=== PATIENT | male | born 1990 | race Caucasian/White ===

== ENCOUNTER 2021-07-21 22:50 | Emergency (ER) | payer SELFPAY ==
[~2021-07-21] VITALS: Ht 170.2 cm; Wt 120.5 kg
[2021-07-21] MEDS ORDERED: FAMOTIDINE 20 MG/2 ML VIAL IVP ONE (23:15)
[2021-07-21] MEDS ORDERED: ONDANSETRON PF 4 MG/2 ML VIAL. IVP ONE (23:15)
[2021-07-21] MEDS ORDERED: KETOROLAC 15 MG/ML VIAL. IVP ONE (23:15)
[2021-07-21] MEDS ORDERED: IV NORMAL SALINE 1,000ML 1,000 ML IV ONE (23:15)
[2021-07-21] MEDS ORDERED: IOHEXOL 300 MG/ML 75 ML VIAL. IV ONE (23:30)
[2021-07-21] MEDS ORDERED: CONTRAST GIVEN. MC PRN (23:30)
--- NOTE | 2021-07-21 23:50 | PHYS DOC ---
Past History Past Medical History: Diverticulitis, Hypothyroid Past Surgical History: Other Additional Past Surgical Histo: BREAST REDUCTION, HERNIA REPAIR, TOE, EYELID SX, NOSE SX Smoking: Cigarettes Alcohol Use: None Drug Use: None General Adult EDM: Chief Complaint: ABDOMINAL PAIN HPI: HPI: 30-year-old male presents with report of left lower quadrant abdominal pain that started approximately 3 days ago. Patient reports history of diverticulitis with admission approximately 3 months ago at [facility]. Patient at that time was told there was a "mass "noted on CT that seemed to improve after IV antibiotic therapy. Patient reports pain similar to prior episode. Denies any fever or chills. Denies trauma. Denies known sick contacts. Patient does report associated nausea and a episode of "bloody" stooling. Review of Systems: Review of Systems: Constitutional: Denies fever or chills Eyes: Denies redness or eye pain HENT: Denies nasal congestion or sore throat Respiratory: Denies cough or shortness of breath Cardiovascular: Denies chest pain or palpitations GI: Reports LLQ abdominal pain, nausea, and episode of a bloody stool : Denies dysuria or hematuria Musculoskeletal: Denies back pain or joint pain Integument: Denies rash or skin lesions Neurologic: Denies headache, focal weakness or sensory changes Complete systems were reviewed and found to be within normal limits, except as documented in this note. Current Medications: Current Meds: Current Medications Medications (Trade) Dose Ordered Sig/Jose Guadalupe Start Time Stop Time Status Last Admin Dose Admin Famotidine (Pepcid Vial) 20 mg 1X ONCE 07/21/21 23:15 07/21/21 23:19 DC 07/21/21 23:42 20 MG Info (Do NOT chart on this entry -- for MONITORING) 1 each PRN DAILY PRN 07/21/21 23:30 07/23/21 23:29 Iohexol (Omnipaque 300 Mg/ml) 75 ml 1X ONCE 07/21/21 23:30 07/21/21 23:31 DC Ketorolac Tromethamine (Toradol 15mg Vial) 15 mg 1X ONCE 07/21/21 23:15 07/21/21 23:19 DC 07/21/21 23:43 15 MG Ondansetron HCl (Zofran) 4 mg 1X ONCE 07/21/21 23:15 07/21/21 23:19 DC 07/21/21 23:42 4 MG Sodium Chloride 1,000 ml @ 1,000 mls/hr 1X ONCE 07/21/21 23:15 07/22/21 00:14 07/21/21 23:43 1,000 MLS/HR Allergies: Allergies: Allergies Coded Allergies Type Severity Reaction Last Updated Verified codeine Allergy Mild Itching 07/21/21 Yes Physical Exam: PE: Constitutional: Well developed, well nourished, no acute distress, non-toxic appearance HENT: Normocephalic, atraumatic Eyes: Conjunctiva normal, no discharge Neck: Normal range of motion, supple Lungs & Thorax: No respiratory distress, equal chest rise and fall Abdomen: Soft, LLQ tenderness, no guarding/rebound tenderness/distention Skin: Warm, dry, no erythema, no rash Back: No tenderness, no CVA tenderness Extremities: No tenderness, ROM intact, no edema Neurologic: Alert and oriented X 3, no focal deficits noted Psychologic: Affect normal, judgment normal Current Patient Data: Vital Signs: Vital Signs Date Time Temp Pulse Resp B/P (MAP) Pulse Ox O2 Delivery O2 Flow Rate FiO2 07/21/21 23:05 98.2 70 18 136/88 (104) 97 Room Air EKG: EKG: [] Radiology/Procedures: Radiology/Procedures: PROCEDURE: CT ABD PELV W/ IV CONTRST ONLY EXAM: CT ABDOMEN/PELVIS WITH CONTRAST. HISTORY: Left lower quadrant pain. TECHNIQUE: Computed tomography of the abdomen and pelvis was performed after the intravenous administration of iodinated contrast. One or more of the following individualized dose reduction techniques were utilized for this examination: 1. Automated exposure control. 2. Adjustment of the mA and/or kV according to patient size. 3. Use of iterative reconstruction technique. COMPARISON: None. FINDINGS: Lung windows through the visualized portions of the bases reveal no abnormality. Bone windows reveal no suspicious lesions. The liver, gallbladder, pancreas, adrenal glands, spleen and kidneys are unremarkable. There are no pathologically enlarged lymph nodes. Sigmoid diverticulosis is mild. There is no acute inflammation. The appendix is not inflamed. There is no small bowel obstruction. IMPRESSION: 1. No cause for pain is identified. Electronically signed by: Makenzie Rodarte MD (07/22/2021 1:48 AM) [facility] Heart Score: C/O Chest Pain: N/A Course & Med Decision Making: Course & Med Decision Making Pertinent Labs and Imaging studies reviewed. (See chart for details) Patient presents with 3-day history of left lower quadrant abdominal pain. Reports history of diverticulitis. Patient also reports previously seen "mass "that improved after IV antibiotic therapy. Patient reports concern that diverticulitis and mass may have returned. Pain/nausea addressed. IV fluid hydration given. Labs obtained and posted to chart. WBC within normal limits. CT abdomen/pelvis without acute finding. Concern for early diverticulitis given location and history. Rx for empiric antibiotics provided with instructions to "watch and wait". Patient stable for discharge with outpatient follow-up with PCP/GI. GI referral provided. Discussed findings and plan with patient, who acknowledges understanding and agreement. Christopher Disclaimer: Christopher Disclaimer: This electronic medical record was generated, in whole or in part, using a voice recognition dictation system. Departure Departure: Impression: Primary Impression: Abdominal pain Qualified Codes: R10.32 - Left lower quadrant pain Additional Impression: Hx of diverticulitis of colon Disposition: HOME / SELF CARE / HOMELESS Condition: STABLE Referrals: PCPCLAU (PCP) CORNELIO RIDDLE MD Patient Instructions: Abdominal Pain (Nonspecific), Diverticulitis, [id number] Additional Instructions: Hold antibiotics for 48 hours. If symptoms worsen or for fever > 100.3 F after 48 hours then start antibiotics as prescribed. Scripts Sennosides/Docusate Sodium (Colace 2-in-1 Tablet) 1 Each Tablet 1 TAB PO QHS for Constipation, #20 TAB 0 Refills Prov: GRAYSON MENG DO 07/22/21 Hydrocodone Bit/Acetaminophen (HYDROCODONE-APAP 5-325 ) 1 Each Tablet 0.5 TAB PO PRN Q6HRS PRN for PAIN, #10 TAB 0 Refills Prov: GRAYSON MENG DO 07/22/21 Ondansetron (ONDANSETRON ODT) 4 Mg Tab.rapdis 1 TAB PO PRN Q6-8HRS PRN for NAUSEA, #16 TAB Prov: GRAYSON MENG DO 07/22/21 Metronidazole (FLAGYL) 500 Mg Tablet 1 TAB PO TID for Diverticulitis for 7 Days, #21 TAB Prov: GRAYSON MENG DO 07/22/21 Ciprofloxacin Hcl (CIPRO) 500 Mg Tablet 1 TAB PO BID for Diverticuilitis for 7 Days, #14 TAB Prov: GRAYSON MENG DO 07/22/21 GRAYSON MENG DO Jul 21, 2021 23:50
[2021-07-22 00:20] LABS: CALCIUM 9.2 mg/dL (8.5-10.1); CREATININE 0.9 mg/dL (0.7-1.3); GFR 99.1; POTASSIUM 3.9 mmol/L (3.5-5.1)
[2021-07-22 00:24] LABS: BASO # 0.1 x10^3/uL (0.0-0.2); BASO % 1 % (0-3); EOS # 0.2 x10^3/uL (0.0-0.7); EOS % 3 % (0-3); HEMATOCRIT 47.3 % (39.0-53.0); HEMOGLOBIN 15.6 g/dL (13.0-17.5); LYMPH # 2.9 x10^3/uL (1.0-4.8); LYMPH % 30 % (24-48); MEAN CORPUSCULAR HEMOGLOBIN 29 pg (25-35); MEAN CORPUSCULAR HGB CONC 33 g/dL (31-37); MEAN CORPUSCULAR VOLUME 89 fL (79-100); MONO # 0.7 x10^3/uL (0.0-1.1); MONO % 7 % (0-9); NEUT # 5.8 x10^3uL (1.8-7.7); NEUT % 60 % (31-73); PLATELET COUNT 269 x10^3/uL (140-400); RED BLOOD COUNT 5.32 x10^6/uL (4.30-5.70); RED CELL DISTRIBUTION WIDTH 13.3 % (11.5-14.5); WHITE BLOOD COUNT 9.7 x10^3/uL (4.0-11.0)
[2021-07-22 00:34] LABS: ALBUMIN 3.9 g/dL (3.4-5.0); TOTAL BILIRUBIN 0.2 mg/dL (0.2-1.0); TOTAL PROTEIN 7.7 g/dL (6.4-8.2)
--- NOTE | 2021-07-22 01:50 | RAD ---
EXAM: CT ABDOMEN/PELVIS WITH CONTRAST. HISTORY: Left lower quadrant pain. TECHNIQUE: Computed tomography of the abdomen and pelvis was performed after the intravenous administ ration of iodinated contrast. One or more of the following individualized dose reduction techniques w ere utilized for this examination: 1. Automated exposure control. 2. Adjustment of the mA and/or kV according to patient size. 3. Use of iterative reconstruction technique. COMPARISON: None. FINDINGS: Lung windows through the visualized portions of the bases reveal no abnormality. Bone windo ws reveal no suspicious lesions. The liver, gallbladder, pancreas, adrenal glands, spleen and kidneys are unremarkable. There are no p athologically enlarged lymph nodes. Sigmoid diverticulosis is mild. There is no acute inflammation. The appendix is not inflamed. There i s no small bowel obstruction. IMPRESSION: 1. No cause for pain is identified. Electronically signed by: Makenzie Rodarte MD (07/22/2021 1:48 AM) [facility]
[2021-07-22 02:08] LABS: BACTERIA,URINE 0 /HPF (0-FEW); BILIRUBIN,URINE NEG (NEG); CLARITY,URINE CLEAR; COLOR,URINE YELLOW; GLUCOSE,URINE NEG (NEG); NITRITE,URINE NEG (NEG); RBC,URINE 0 /HPF (0-2); SQUAMOUS EPITHELIAL CELL,UR OCC /LPF; UROBILINOGEN,URINE 0.2 mg/dL (0.2 mg/dL); WBC,URINE OCC /HPF (0-4)
[2021-07-22] MEDS ORDERED: ONDA4TAB12 PO (03:13)
[2021-07-22] MEDS ORDERED: SENN-121 PO (03:13)
[2021-07-22] MEDS ORDERED: METR500T PO (03:13)
[2021-07-22] MEDS ORDERED: HYDR-2155 PO (03:13)
[2021-07-22] MEDS ORDERED: CIPR500T94 PO (03:13)
[2021-07-22] MEDS ORDERED: HYDROcodone/APAP 5/325MG 1 TAB TABLET PO ONE (03:15)
[2021-07-22 03:28] VITALS: BP 148/90
== END 2021-07-22 03:34 | disposition home or self-care (01) ==
LOC: ER 22:50
DX: R10.32 Left lower quadrant pain (principal); K92.1 Melena; E03.9 Hypothyroidism, unspecified; F17.210 Nicotine dependence, cigarettes, uncomplicated; Z88.5 Allergy status to narcotic agent
CPT/HCPCS: 36415; 74177; 80053; 81001; 83690; 85025; 96361; 96374; 96375; 99285; J1885; J2405; J3490; J7030; Q9967

== ENCOUNTER 2021-10-03 21:37 | Emergency (ER) | payer SELFPAY ==
[~2021-10-03] VITALS: Ht 170.2 cm; Wt 122.3 kg
[~2021-10-03 21:37] MED LIST: CIPR500T94 PO; HYDR-2155 PO; METR500T PO; ONDA4TAB12 PO; SENN-121 PO
--- NOTE | 2021-10-03 21:41 | PHYS DOC ---
Past History Past Medical History: Diverticulitis, Hypothyroid Past Surgical History: Other Additional Past Surgical Histo: BREAST REDUCTION, HERNIA REPAIR, TOE, EYELID SX, NOSE SX Smoking: Cigarettes Alcohol Use: None Drug Use: None Adult General HPI HPI Patient is a 31-year-old male otherwise healthy who presents with cough and body aches. States he took some Tylenol earlier this morning with some minimal relief. States his and kids were diagnosed with Covid about 3 weeks ago and he has been at home with them. Denies any recent traumas, travels, fevers, chest pain, abdominal pain, nausea, vomiting, diarrhea. States he is able to eat and drink normally for him. States he is making urine and stool normally for him. Review of Systems Review of Systems Review of systems otherwise unremarkable except noted in HPI Allergies Allergies Allergies Coded Allergies Type Severity Reaction Last Updated Verified codeine Allergy Mild Itching 07/21/21 Yes Physical Exam Physical Exam Constitutional: Well developed, well nourished, no acute distress, non-toxic appearance. [] HENT: Normocephalic, atraumatic, oropharynx moist, no oral exudates, nose normal. [] Eyes: conjunctiva normal, no discharge. [] Neck: Normal range of motion, no tenderness, supple, no stridor. [] Cardiovascular:Heart rate regular rhythm, no murmur [] Lungs & Thorax: Scant bilateral rhonchi with no respiratory distress or hypoxia Skin: Warm, dry, no erythema, no rash. [] Extremities: No tenderness, no cyanosis, no clubbing, ROM intact, no edema. [] Neurologic: Alert and oriented X 3, no focal deficits noted. [] Psychologic: Affect normal, judgement normal, mood normal. [] EKG EKG [] Radiology/Procedures Radiology/Procedures [] Heart Score C/O Chest Pain: No Risk Factors: Risk Factors: DM, Current or recent (<one month) smoker, HTN, HLP, family history of CAD, obesity. Risk Scores: Risk Factors: DM, Current or recent (<one month) smoker, HTN, HLP, family history of CAD, obesity. Course & Med Decision Making Course & Med Decision Making Patient is a 31-year-old male who presents with cough and body aches Vital signs notable for tachycardia. Physical exam noted above. Chest x-ray suggestive of pneumonia community-acquired versus Covid. Started on antibiotics in the emergency department. Discussed symptomatic management at home. Discussed Covid education and quarantine at home. Advised to follow-up first thing Tuesday with primary care physician update on ED visit. Gave strict return precautions to the ED. Patient grateful, verbalized understanding and agreed with plan of discharge. Dragon Disclaimer Dragon Disclaimer This electronic medical record was generated, in whole or in part, using a voice recognition dictation system. Departure Departure: Impression: Primary Impression: Pneumonia Disposition: HOME / SELF CARE / HOMELESS Condition: GOOD Referrals: PCP,CLAU (PCP) VALERIA MIRANDA MD Patient Instructions: Pneumonia, Adult Additional Instructions: Thank you for coming into the emergency department tonight and allowing us to take care of you. Please read all the attached information carefully to go back over some of the things we discussed. Please continue a Tylenol, ibuprofen and cough syrup [id number] as we discussed. Please take your nausea medicine and prescription pain medicine as prescribed and only when needed. Please follow-up on Tuesday with a primary care physician update on your ED visit and set up a follow-up. Please come back to the ED with new or concerning symptoms as we discussed. You have been tested for or diagnosed with COVID-19. It is an infection caused by a new type of coronavirus. COVID-19 will cause cold-like or mild flu symptoms in most. It can cause more severe symptoms like problems breathing in some. There is no treatment for COVID-19. The body will clear the infection over time. Self-care will help to ease discomfort. Steps to Take: Self-Care Rest as needed. Healthy habits may help you feel better. Steps include: Choose healthy foods including fruits and vegetables. Drink water throughout the day. Get plenty of sleep each night. If you smoke, try to quit. It may ease breathing. Avoid alcohol. Keep Others Healthy The virus can spread to others. Droplets are released every time you sneeze or cough. The droplets can get into the mouth, nose, or eyes of people near you and lead to infection. To lower the chances of spreading COVID-19 to others: Stay at home until your doctor has said it is safe to leave. If you tested positive this will mean staying isolated until both of the following are true: At least 7 days have passed since the start of illness. You are free of fever for at least 72 hours without the use of medicine. During this time: - Avoid public areas, events, or transportation. Do not return to work or school until your doctor has said it is safe to do so. - Call ahead if you need to go to a medical center. Let them know you may have COVID-19. It will help them guide you where to go. They may also ask you to wear a facemask when you come to the office. - If you call for emergency medical services, let them know you may have COVID- 19. While at home: - Try to avoid close contact with others. Stay about 6 feet away. - If possible, spend most of your time in a separate room from others. - Use a face mask if you will be in close contact with others such as sharing a room or vehicle. - Have someone wipe down common surfaces in the home. Use household merchandiser every day on areas like doorknobs, counters, or sinks. - Cough or sneeze into a tissue. Throw the tissue away right after use. If a tissue is not available, cough or sneeze into your elbow. - Wash your hands often. Wash them after sneezing or coughing. Use soap and water and wash for at least 20 seconds. Alcohol based hand spice cleaner can be used if soap and water is not available. - Do not prepare food for others. Avoid sharing personal items like forks, spoons, or toothbrushes. - Avoid close contact with pets while you are sick. There is no evidence of the virus passing to pets. This is a safety step until more is known about this virus. Isolation can be frustrating. Social interaction can help. Keep in touch with friends and family through phone and tech options. You can still interact with others in your home, just keep a safe distance of about 6 feet. Follow-up: Your doctors office will check in with you to see if there are any changes in your health. You may be asked to keep track of symptoms to share with them. They will also let you know when you are clear to be in public again. Problems to Look Out For: Contact your doctor if your recovery is not going as you expect. Get emergency care if you have problems such as: - Trouble breathing - Nonstop chest pain or pressure - Changes in awareness, confusion, or problems waking - Lips or face have bluish color - Worsening of symptoms If you think you have an emergency, call for emergency medical services right away. As taken from [facility] Health Scripts Levofloxacin (LEVOFLOXACIN) 500 Mg Tablet 1 TAB PO DAILY for PNA for 6 Days, #6 TAB Prov: TENNILLE HUDSON MD 10/03/21 TENNILLE HUDSON MD Oct 03, 2021 21:41
[2021-10-03] MEDS ORDERED: LEVO500T9 PO (22:34)
[2021-10-03] MEDS ORDERED: levoFLOXacin 250 MG TABLET ONE (22:37)
[2021-10-03] MEDS ORDERED: IBUPROFEN 600 MG TABLET. PO ONE ×2 (22:38→23:00)
[2021-10-03 22:46] VITALS: BP 122/93
[2021-10-03] MEDS ORDERED: ACETAMINOPHEN 500 MG TABLET PO ONE (23:00)
[2021-10-03] MEDS ORDERED: START PACK - traMADol 1 STARTPACK TABLET PO ONE (23:00)
[2021-10-03] MEDS ORDERED: levoFLOXacin 500 MG TABLET PO ONE (23:00)
[2021-10-03] MEDS ORDERED: ONDANSETRON 4MG ODT 4TABLET STARTPACK. PO ONE (23:00)
--- NOTE | 2021-10-03 23:51 | RAD ---
Exam: Chest one view INDICATION: Cough TECHNIQUE: Frontal view of the chest Comparisons: None FINDINGS: The cardiomediastinal silhouette and pulmonary vessels are within normal limits. Patchy airspace disease at the lung bases greater on the right. No pleural effusion. IMPRESSION: Bibasilar airspace disease may be infectious or inflammatory in etiology. Electronically signed by: Frantz Rees MD (10/03/2021 11:49 PM) [facility]
== END 2021-10-03 22:55 | disposition home or self-care (01) ==
LOC: ER 21:37
DX: U07.1 COVID-19 (principal); J18.9 Pneumonia, unspecified organism; E03.9 Hypothyroidism, unspecified; F17.210 Nicotine dependence, cigarettes, uncomplicated; Z88.5 Allergy status to narcotic agent
CPT/HCPCS: 71045; 87426; 99284; Q0162